=== PATIENT | female | born 1955 | race Hispanic/Latino ===

== ENCOUNTER 2022-04-19 14:53 | Inpatient (IN) | payer OTHER ==
[~2022-04-19] VITALS: Ht 154.9 cm; Wt 65.3 kg
[2022-04-19] MEDS ORDERED: VANCOMYCIN 1G VIAL IVPB ONE ×2 (15:30→16:00)
[2022-04-19] MEDS ORDERED: ONDANSETRON 4MG INJ IVP ONE (15:30)
[2022-04-19] MEDS ORDERED: NIFEDIPINE 10 MG CAP PO ONE (15:30)
[2022-04-19 15:36] LABS: BASOPHILS % (AUTO) 0.2 % (0.0-5.0); HEMATOCRIT 28.5 % (36-48); LYMPHOCYTES % (AUTO) 4.2 % (21.0-51.0); MEAN CORPUSCULAR HEMOGLOBIN 29.4 pg (27.0-33.0); MEAN CORPUSCULAR VOLUME 89.1 fL (79-99); NEUTROPHILS % (AUTO) 91.7 % (40.0-77.0); PLATELET COUNT (AUTO) 403 K/uL (130-400); RED CELL DISTRIBUTION WIDTH 13.2 % (11.0-15.5)
[2022-04-19 15:48] LABS: CREATININE 0.9 mg/dL (0.5-1.5); POTASSIUM 3.8 mmol/L (3.5-5.1)
[2022-04-19 15:58] LABS: ALBUMIN 2.8 g/dL (3.5-5.0); BILIRUBIN,TOTAL 0.4 mg/dL (0.2-1.0); TOTAL PROTEIN, SERUM 8.2 g/dL (6.0-8.3)
[2022-04-19] MEDS: ZOSYN 3.375GM +NS 50ML IV SCH ×2 (16:02→23:30)
[2022-04-19] MEDS ORDERED: HYDRALAZINE 20MG/ML VIAL ONE (16:27)
[2022-04-19] MEDS ORDERED: VANCOMYCIN 1G/250ML KIT 250 ML IV ONE (16:28)
[2022-04-19] MEDS ORDERED: HYDRALAZINE 20MG/ML VIAL IV ONE (16:30)
[2022-04-19] MEDS ORDERED: INSULIN HUMULIN R 100 UNIT/ML 3ML IV ONE (16:30)
[2022-04-19] MEDS: 0.9%NACL 1000ML 1,000 ML IV SCH ×3 (16:45→23:10)
[2022-04-19] MEDS ORDERED: ATOR40TA71 PO (16:58)
[2022-04-19] MEDS ORDERED: CLOP75TA32 PO (16:58)
[2022-04-19] MEDS ORDERED: TRAM-355 PO (16:59)
[2022-04-19] MEDS ORDERED: FERR325T29 PO (16:59)
[2022-04-19] MEDS ORDERED: GABA-529 PO (17:00)
[2022-04-19] MEDS ORDERED: HYDR12.54 PO (17:00)
[2022-04-19] MEDS ORDERED: CLIN-141 PO (17:01)
[2022-04-19] MEDS ORDERED: LEVO750T46 PO (17:01)
[2022-04-19] MEDS ORDERED: MORPHINE 4 MG SYG IV PRN (18:00)
[2022-04-19] MEDS ORDERED: ONDANSETRON 4MG INJ IV PRN (18:00)
[2022-04-19] MEDS ORDERED: MORPHINE 2 MG SYG IV PRN (18:00)
[2022-04-19] MEDS ORDERED: ACETAMINOPHEN 325 MG TAB PO PRN ×2 (18:00)
[2022-04-19] MEDS ORDERED: VANCOMYCIN PROTOCOL PER PHARMACY IV PRN (18:00)
[2022-04-19 18:27] LABS: RETICULOCYTE % (AUTO) 1.09 % (0.42-2.23)
[2022-04-19] MEDS ORDERED: [UNRECOGNIZED DRUG - REMARK] MISC SCH (18:30)
[2022-04-19] MEDS ORDERED: HYDROCHLOROTHIAZIDE 25 MG TABLET PO ONE (18:30)
[2022-04-19 18:32] LABS: CHOLESTEROL 167 mg/dL (<200); HDL CHOLESTEROL 38 mg/dL (35-85); LDL DIRECT 101 mg/dL (0-99); TRIGLYCERIDES 126 mg/dL (30-200)
[2022-04-19 18:39] LABS: HEMOGLOBIN A1C 8.7 % (4.0-6.0)
[2022-04-19] MEDS: MEROPENEM 500 MG VIAL IV SCH (18:53)
[2022-04-19 18:58] LABS: THYROID STIMULATING HORMONE 0.82 uIU/mL (0.36-3.74)
[2022-04-19] MEDS ORDERED: LABETALOL 20MG VIAL IV PRN (19:00)
[2022-04-19 19:16] LABS: % IRON SATURATION 33.3 % (22-44)
[2022-04-19] MEDS ORDERED: INSULIN GLARGINE 100 UNITS/ML 10 ML VIAL SQ SCH (21:00)
[2022-04-19] MEDS: FAMOTIDINE 20MG VIAL IV SCH (21:00)
[2022-04-19] MEDS: GABAPENTIN 300 MG CAPSULE PO SCH (21:30)
[2022-04-19] MEDS: INSULIN GLARGINE 100 UNITS/ML 10 ML VIAL SQ SCH (21:30)
[2022-04-19] MEDS: LISINOPRIL 10 MG TABLET PO SCH (21:30)
[2022-04-19] MEDS: INSULIN LISPRO 100 UNIT/ML 3ML SQ SCH (21:30)
[2022-04-19] MEDS: NIFEDIPINE 10 MG CAP PO SCH (21:30)
[2022-04-20] MEDS ORDERED: PROMETHAZINE HCL 25 MG/ML 1ML AMPULE IM ONE (01:30)
[2022-04-20] MEDS: MEROPENEM 500 MG VIAL IV SCH ×3 (01:42→18:06)
[2022-04-20] MEDS: 0.9%NACL 1000ML 1,000 ML IV SCH ×6 (02:00→19:10)
[2022-04-20] MEDS ORDERED: 0.9% NACL 250ML 250 ML ONE ×2 (04:20→16:05)
[2022-04-20] MEDS: VANCOMYCIN 1G/250ML KIT 250 ML IV SCH ×2 (04:23→16:10)
[2022-04-20 06:20] VITALS: BP 128/59
[2022-04-20] MEDS: INSULIN LISPRO 100 UNIT/ML 3ML SQ SCH ×7 (06:39→20:20)
[2022-04-20] MEDS: ZOSYN 3.375GM +NS 50ML IV SCH (07:30)
[2022-04-20 08:00] VITALS: BP 155/88
[2022-04-20] MEDS: FAMOTIDINE 20MG VIAL IV SCH ×2 (08:39→19:36)
[2022-04-20] MEDS: GABAPENTIN 300 MG CAPSULE PO SCH ×2 (08:40→19:36)
[2022-04-20] MEDS: NIFEDIPINE 10 MG CAP PO SCH ×3 (08:40→19:36)
[2022-04-20] MEDS: HYDROCHLOROTHIAZIDE 25 MG TABLET PO SCH (08:41)
[2022-04-20] MEDS: LISINOPRIL 10 MG TABLET PO SCH ×2 (08:41→19:36)
[2022-04-20] MEDS ORDERED: COMPOUND IV MISC 1 EACH IVSOLN MISC PRN (10:00)
[2022-04-20] MEDS ORDERED: GADOTERATE MEGLUMINE 10 MMOL/20 ML VIAL IV ONE (11:32)
[2022-04-20 11:48] VITALS: BP 138/66
[2022-04-20 14:32] LABS: HEMATOCRIT 26.4 % (36-48); MEAN CORPUSCULAR HEMOGLOBIN 30.3 pg (27.0-33.0); MEAN CORPUSCULAR HGB CONC 34.1 g/dL (32.0-36.0); MEAN CORPUSCULAR VOLUME 88.9 fL (79-99); RED BLOOD CELL COUNT(AUTO) 2.97 MIL/uL (4.00-5.50); RED CELL DISTRIBUTION WIDTH 13.4 % (11.0-15.5); WHITE BLOOD COUNT (AUTO) 19.8 K/uL (4.8-10.8)
[2022-04-20 14:39] LABS: CREATININE 1.3 mg/dL (0.5-1.5); POTASSIUM 3.1 mmol/L (3.5-5.1)
[2022-04-20 16:00] VITALS: BP 114/56
[2022-04-20] MEDS ORDERED: DIPH,PERTUSS(ACELL),TET VAC/PF 0.5 ML VIAL IM ONE (16:00)
[2022-04-20] MEDS: ATORVASTATIN 40 MG TABLET PO SCH (19:35)
[2022-04-20 20:13] VITALS: BP 150/67
[2022-04-20] MEDS: INSULIN GLARGINE 100 UNITS/ML 10 ML VIAL SQ SCH (20:20)
[2022-04-20 23:31] VITALS: BP 118/53
[2022-04-21] MEDS: 0.9%NACL 1000ML 1,000 ML IV SCH ×6 (01:50→21:50)
[2022-04-21] MEDS: MEROPENEM 500 MG VIAL IV SCH ×3 (02:01→18:31)
[2022-04-21] MEDS: VANCOMYCIN 1G/250ML KIT 250 ML IV SCH ×2 (03:06→18:30)
[2022-04-21 03:22] VITALS: BP 142/72
[2022-04-21 05:20] LABS: HEMATOCRIT 25.4 % (36-48); MEAN CORPUSCULAR HGB CONC 33.5 g/dL (32.0-36.0); MEAN CORPUSCULAR VOLUME 89.8 fL (79-99); RED BLOOD CELL COUNT(AUTO) 2.83 MIL/uL (4.00-5.50); RED CELL DISTRIBUTION WIDTH 13.2 % (11.0-15.5); WHITE BLOOD COUNT (AUTO) 15.2 K/uL (4.8-10.8)
[2022-04-21 05:31] LABS: ALBUMIN 2.1 g/dL (3.5-5.0); CREATININE 1.3 mg/dL (0.5-1.5); POTASSIUM 3.1 mmol/L (3.5-5.1)
[2022-04-21] MEDS: INSULIN LISPRO 100 UNIT/ML 3ML SQ SCH ×7 (05:44→20:27)
[2022-04-21] MEDS ORDERED: POTASSIUM CHLORIDE 10% ELIXIR 20 MEQ/15 ML UDCUP PO PRN (07:30)
[2022-04-21 07:40] VITALS: BP 169/76
[2022-04-21] MEDS: FAMOTIDINE 20MG VIAL IV SCH ×2 (09:00→20:55)
[2022-04-21] MEDS: NIFEDIPINE 10 MG CAP PO SCH ×3 (09:03→20:54)
[2022-04-21] MEDS: LISINOPRIL 10 MG TABLET PO SCH ×2 (09:03→20:53)
[2022-04-21] MEDS: GABAPENTIN 300 MG CAPSULE PO SCH ×2 (09:03→20:54)
[2022-04-21] MEDS: IRON SUCROSE COMPLEX 300 MG in 0.9%NACL 50ML 50 ML IV SCH (09:04)
[2022-04-21] MEDS: HYDROCHLOROTHIAZIDE 25 MG TABLET PO SCH (09:04)
[2022-04-21] MEDS: LIDOCAINE HCL-MPF 1% 2ML VIAL IV PRN (10:33)
[2022-04-21] MEDS: POTASSIUM CHLORIDE 20MEQ/100ML 100 ML IV PRN (10:33)
[2022-04-21 11:40] VITALS: BP 156/78
[2022-04-21] MEDS ORDERED: IOHEXOL-350 75 ML VIAL IV ONE (15:22)
[2022-04-21] MEDS ORDERED: PROMETHAZINE HCL 25 MG/ML 1ML AMPULE IM PRN (15:30)
[2022-04-21 15:40] VITALS: BP 119/56
[2022-04-21] MEDS ORDERED: 0.9% NACL 250ML 250 ML ONE (18:29)
[2022-04-21 20:08] VITALS: BP 150/76
[2022-04-21] MEDS: ATORVASTATIN 40 MG TABLET PO SCH (20:53)
[2022-04-21] MEDS: INSULIN GLARGINE 100 UNITS/ML 10 ML VIAL SQ SCH (21:10)
[2022-04-21 23:30] VITALS: BP 161/80
[2022-04-22] MEDS ORDERED: 0.9% NACL 250ML 250 ML ONE (03:16)
[2022-04-22] MEDS: MEROPENEM 500 MG VIAL IV SCH ×3 (03:19→19:06)
[2022-04-22] MEDS: VANCOMYCIN 1G/250ML KIT 250 ML IV SCH ×2 (03:25→15:50)
[2022-04-22 03:37] VITALS: BP 164/77
[2022-04-22] MEDS: 0.9%NACL 1000ML 1,000 ML IV SCH ×5 (04:30→18:00)
[2022-04-22 05:14] LABS: MEAN CORPUSCULAR HGB CONC 33.3 g/dL (32.0-36.0); MEAN CORPUSCULAR VOLUME 89.9 fL (79-99); RED BLOOD CELL COUNT(AUTO) 2.67 MIL/uL (4.00-5.50); RED CELL DISTRIBUTION WIDTH 13.3 % (11.0-15.5); WHITE BLOOD COUNT (AUTO) 14.9 K/uL (4.8-10.8)
[2022-04-22 05:40] LABS: CREATININE 1.1 mg/dL (0.5-1.5)
[2022-04-22 05:50] LABS: POTASSIUM 2.5 mmol/L (3.5-5.1)
[2022-04-22] MEDS: POTASSIUM CHLORIDE 20MEQ/100ML 100 ML IV PRN (06:06)
[2022-04-22] MEDS: LIDOCAINE HCL-MPF 1% 2ML VIAL IV PRN (06:07)
[2022-04-22] MEDS: INSULIN LISPRO 100 UNIT/ML 3ML SQ SCH ×5 (06:53→20:44)
[2022-04-22] MEDS ORDERED: MAGNESIUM 2GM PREMIX 50ML 50 ML IV PRN ×2 (07:30→11:30)
[2022-04-22 07:41] VITALS: BP 194/86
[2022-04-22] MEDS ORDERED: POTASSIUM CHLORIDE 10% ELIXIR 20 MEQ/15 ML UDCUP PO SCH (07:45)
[2022-04-22] MEDS: FAMOTIDINE 20MG VIAL IV SCH ×2 (09:00→20:41)
[2022-04-22 11:16] VITALS: BP 158/78
[2022-04-22] MEDS: LISINOPRIL 10 MG TABLET PO SCH ×2 (11:19→20:40)
[2022-04-22] MEDS: NIFEDIPINE 10 MG CAP PO SCH ×3 (11:19→20:39)
[2022-04-22] MEDS: GABAPENTIN 300 MG CAPSULE PO SCH ×2 (11:19→20:39)
[2022-04-22] MEDS: HYDROCHLOROTHIAZIDE 25 MG TABLET PO SCH (11:20)
[2022-04-22] MEDS: IRON SUCROSE COMPLEX 300 MG in 0.9%NACL 50ML 50 ML IV SCH (11:21)
[2022-04-22 16:00] VITALS: BP 150/82
[2022-04-22 20:14] VITALS: BP 127/67
[2022-04-22] MEDS: INSULIN GLARGINE 100 UNITS/ML 10 ML VIAL SQ SCH (20:30)
[2022-04-22] MEDS: ATORVASTATIN 40 MG TABLET PO SCH (20:40)
[2022-04-22 23:10] VITALS: BP 125/57
[2022-04-23] MEDS: 0.9%NACL 1000ML 1,000 ML IV SCH ×2 (00:30→02:08)
[2022-04-23] MEDS: MEROPENEM 500 MG VIAL IV SCH ×2 (02:08→09:29)
[2022-04-23 04:08] VITALS: BP 150/68
[2022-04-23] MEDS: VANCOMYCIN 1G/250ML KIT 250 ML IV SCH ×2 (04:16→16:00)
[2022-04-23] MEDS: INSULIN LISPRO 100 UNIT/ML 3ML SQ SCH ×3 (06:03→16:30)
[2022-04-23 08:00] VITALS: BP 156/78
[2022-04-23] MEDS: FAMOTIDINE 20MG VIAL IV SCH (09:00)
[2022-04-23] MEDS: GABAPENTIN 300 MG CAPSULE PO SCH (09:26)
[2022-04-23] MEDS: KCL 20 MEQ ERTAB PO PRN ×2 (09:26→13:56)
[2022-04-23] MEDS: HYDROCHLOROTHIAZIDE 25 MG TABLET PO SCH (09:27)
[2022-04-23] MEDS: LISINOPRIL 10 MG TABLET PO SCH (09:27)
[2022-04-23] MEDS: NIFEDIPINE 10 MG CAP PO SCH ×2 (09:28→13:55)
[2022-04-23] MEDS: IRON SUCROSE COMPLEX 300 MG in 0.9%NACL 50ML 50 ML IV SCH (09:36)
[2022-04-23] MEDS ORDERED: LISI10TA24 PO (11:13)
[2022-04-23] MEDS ORDERED: NIFE60TA81 PO (11:13)
[2022-04-23] MEDS ORDERED: ONDA-104 PO (11:28)
[2022-04-23 12:00] VITALS: BP 142/62
[2022-04-23] MEDS ORDERED: LEVO500T90 PO (16:51)
== END 2022-04-23 18:15 | disposition home or self-care (01) | DRG 264 ==
LOC: EDH 14:53 → EDHIP 14:54 → EDBD 14:54 → EDHIP 17:33 → UNDOADMIN 17:33 → 3BH 04-20 01:29
PROVIDERS: ADMIT Hospitalist; ATTEND Hospitalist
PROC: 0J9Q0ZZ Drainage of Right Foot Subcutaneous Tissue and Fascia, Open Approach (ICD-10-PCS; principal; 2022-04-22)
PROC: 0JBQ0ZZ Excision of Right Foot Subcutaneous Tissue and Fascia, Open Approach (ICD-10-PCS; 2022-04-22)
DX: E11.52 Type 2 diabetes mellitus with diabetic peripheral angiopathy with gangrene (principal); A48.0 Gas gangrene; E87.1 Hypo-osmolality and hyponatremia; L02.611 Cutaneous abscess of right foot; I16.0 Hypertensive urgency; D72.829 Elevated white blood cell count, unspecified; I10 Essential (primary) hypertension; Z20.822 Contact with and (suspected) exposure to COVID-19; E87.8 Other disorders of electrolyte and fluid balance, not elsewhere classified; E11.65 Type 2 diabetes mellitus with hyperglycemia; E11.40 Type 2 diabetes mellitus with diabetic neuropathy, unspecified; E11.42 Type 2 diabetes mellitus with diabetic polyneuropathy; D50.9 Iron deficiency anemia, unspecified; E11.621 Type 2 diabetes mellitus with foot ulcer; L97.519 Non-pressure chronic ulcer of other part of right foot with unspecified severity; E87.6 Hypokalemia; B96.20 Unspecified Escherichia coli [E. coli] as the cause of diseases classified elsewhere; E83.42 Hypomagnesemia; B95.2 Enterococcus as the cause of diseases classified elsewhere; Z79.899 Other long term (current) drug therapy
CPT/HCPCS: 36415; 71045; 73630; 73720; 74176; 74177; 80048; 80053; 80061; 80202; 82040; 82607; 82728; 82746; 82948; 83036; 83540; 83550; 83605; 83735; 83880; 84145; 84443; 84484; 85025; 85027; 85045; 85651; 86140; 87040; 87070; 87076; 87077; 87186; 87635; 90715; 93005; 93925; 93926; G0378; J0360; J1756; J1815; J2185; J2270; J2405; J2543; J2550; J3370; J3475; J3480; J3490; J7050; Q9967

== ENCOUNTER 2022-04-24 21:50 | Inpatient (IN) | payer OTHER ==
[~2022-04-24] VITALS: Ht 157.5 cm; Wt 61.9 kg
[~2022-04-24 21:50] MED LIST: ATOR40TA71 PO; CLOP75TA32 PO; FERR325T29 PO; GABA-529 PO; HYDR12.54 PO; LEVO500T90 PO; LISI10TA24 PO; NIFE60TA81 PO; ONDA-104 PO; TRAM-355 PO
[2022-04-24] MEDS ORDERED: ONDANSETRON 4MG INJ IVP ONE (22:00)
[2022-04-24 22:14] LABS: BASOPHILS % (AUTO) 0.2 % (0.0-5.0); EOSINOPHILS % (AUTO) 0.2 % (0.0-8.0); HEMATOCRIT 31.6 % (36-48); LYMPHOCYTES % (AUTO) 5.6 % (21.0-51.0); MEAN CORPUSCULAR HEMOGLOBIN 29.4 pg (27.0-33.0); MEAN CORPUSCULAR HGB CONC 33.5 g/dL (32.0-36.0); MEAN CORPUSCULAR VOLUME 87.8 fL (79-99); NEUTROPHILS % (AUTO) 88.1 % (40.0-77.0); PLATELET COUNT (AUTO) 515 K/uL (130-400); RED CELL DISTRIBUTION WIDTH 13.2 % (11.0-15.5); WHITE BLOOD COUNT (AUTO) 15.1 K/uL (4.8-10.8)
[2022-04-24 22:29] LABS: CREATININE 1.3 mg/dL (0.5-1.5); POTASSIUM 3.3 mmol/L (3.5-5.1)
[2022-04-24 22:34] LABS: ALBUMIN 2.6 g/dL (3.5-5.0); BILIRUBIN,TOTAL 0.4 mg/dL (0.2-1.0); TOTAL PROTEIN, SERUM 7.3 g/dL (6.0-8.3)
[2022-04-24] MEDS ORDERED: 0.9%NACL 1000ML 1,000 ML IV ONE (23:00)
[2022-04-25 01:15] LABS: APPEARANCE,URINE Clear (CLEAR); BILIRUBIN,URINE Negative (NEGATIVE); COLOR,URINE Yellow (YELLOW); GLUCOSE, URINE (UA) 250 mg/dL (NEGATIVE); KETONES,URINE Negative (NEGATIVE); LEUKOCYTE ESTERASE ,URINE Negative (NEGATIVE); NITRATE,URINE Negative (NEGATIVE); OCCULT BLOOD,URINE Negative (NEGATIVE); PROTEIN,URINE POS 1+ mg/dL (NEGATIVE); UROBILINOGEN,URINE 0.2 mg/dL (0.2-1.0)
[2022-04-25 01:35] LABS: BACTERIA,URINE None Seen /HPF (None Seen); RBC,URINE None Seen /HPF (0-1); SQUAMOUS EPITHELIAL CELL,UR Rare /HPF (0-2); WBC,URINE 0-1 /HPF (0-1); YEAST,URINE BUDDING None Seen /HPF (None Seen)
[2022-04-25] MEDS ORDERED: ACETAMINOPHEN 325 MG TAB PO PRN (02:00)
[2022-04-25 02:20] LABS: INR 1.01 (0.85-1.15)
[2022-04-25 02:21] LABS: PARTIAL THROMBOPLASTIN TIME 32.8 SEC (26.3-35.5)
[2022-04-25] MEDS ORDERED: LABETALOL 20MG VIAL IV SCH (02:30)
[2022-04-25] MEDS: ONDANSETRON 4MG INJ IVP SCH ×4 (02:30→21:02)
[2022-04-25] MEDS: ENALAPRILAT DIHYDRATE 1.25MG/ML 1ML VIAL IV SCH ×4 (02:30→21:04)
[2022-04-25] MEDS ORDERED: HYDRALAZINE 20MG/ML VIAL ONE (03:03)
[2022-04-25] MEDS: 0.9%NACL 1000ML 1,000 ML IV SCH ×2 (03:20→16:10)
[2022-04-25] MEDS: POTASSIUM CHLORIDE 20MEQ/100ML 100 ML IV PRN (03:30)
[2022-04-25 04:30] VITALS: BP 189/80
[2022-04-25] MEDS: LABETALOL 20MG VIAL IV PRN ×2 (04:42→22:53)
[2022-04-25] MEDS: ONDANSETRON 4MG INJ IV PRN (05:13)
[2022-04-25] MEDS ORDERED: INSULIN HUMULIN R 100 UNIT/ML 3ML ONE (05:33)
[2022-04-25] MEDS: INSULIN HUMULIN R 100 UNIT/ML 3ML SQ SCH ×4 (05:55→21:00)
[2022-04-25] MEDS: ZOSYN 3.375GM+NS 50ML 50 ML IV SCH ×3 (07:22→21:06)
[2022-04-25 08:05] VITALS: BP 187/73
[2022-04-25] MEDS: HEPARIN 5,000 UNIT VIAL SQ SCH ×2 (09:18→21:05)
[2022-04-25] MEDS: FAMOTIDINE 20MG TAB PO SCH (09:18)
[2022-04-25 11:32] VITALS: BP 186/79
[2022-04-25] MEDS: MUPIROCIN OINTMENT 22 GM TUBE TP SCH (12:14)
[2022-04-25 15:49] VITALS: BP 187/85
[2022-04-25 20:00] VITALS: BP 199/81
[2022-04-25 22:05] VITALS: BP 201/87
[2022-04-25] MEDS ORDERED: PROMETHAZINE HCL 25 MG/ML 1ML AMPULE IM ONE (23:00)
[2022-04-26] VITALS (57 sets, daily range): BP systolic 114–219; BP diastolic 39–117
[2022-04-26] MEDS ORDERED: LABETALOL 20MG VIAL IV ONE (01:00)
[2022-04-26] MEDS: ENALAPRILAT DIHYDRATE 1.25MG/ML 1ML VIAL IV SCH ×4 (02:16→23:30)
[2022-04-26] MEDS: ONDANSETRON 4MG INJ IVP SCH (02:20)
[2022-04-26 03:41] LABS: BASOPHILS % (AUTO) 0.2 % (0.0-5.0); EOSINOPHILS % (AUTO) 0.1 % (0.0-8.0); LYMPHOCYTES % (AUTO) 7.3 % (21.0-51.0); MEAN CORPUSCULAR HEMOGLOBIN 29.4 pg (27.0-33.0); MEAN CORPUSCULAR HGB CONC 32.8 g/dL (32.0-36.0); MEAN CORPUSCULAR VOLUME 89.6 fL (79-99); MONOCYTES % (AUTO) 6.3 % (3.0-13.0); NEUTROPHILS % (AUTO) 84.5 % (40.0-77.0); PLATELET COUNT (AUTO) 434 K/uL (130-400); RED BLOOD CELL COUNT(AUTO) 2.79 MIL/uL (4.00-5.50); RED CELL DISTRIBUTION WIDTH 13.2 % (11.0-15.5); WHITE BLOOD COUNT (AUTO) 9.9 K/uL (4.8-10.8)
[2022-04-26 03:51] LABS: CREATININE 1.3 mg/dL (0.5-1.5); MAGNESIUM 1.5 mg/dL (1.80-2.40); PHOSPHORUS 2.7 mg/dL (2.5-4.9)
[2022-04-26 03:53] LABS: POTASSIUM 2.8 mmol/L (3.5-5.1)
[2022-04-26] MEDS: ZOSYN 3.375GM+NS 50ML 50 ML IV SCH (04:42)
[2022-04-26] MEDS: POTASSIUM CHLORIDE 20MEQ/100ML 100 ML IV PRN ×4 (04:43→23:36)
[2022-04-26] MEDS: LIDOCAINE HCL-MPF 1% 2ML VIAL IV PRN ×2 (04:43→10:53)
[2022-04-26] MEDS: LABETALOL 20MG VIAL IV PRN ×2 (04:55→10:25)
[2022-04-26] MEDS: INSULIN HUMULIN R 100 UNIT/ML 3ML SQ SCH ×4 (06:42→21:14)
[2022-04-26] MEDS ORDERED: DILTIAZEM 25MG INJ IVP PRN (08:00)
[2022-04-26] MEDS ORDERED: MAGNESIUM 2GM PREMIX 50ML 50 ML IV SCH (08:00)
[2022-04-26] MEDS ORDERED: DILTIAZEM 125 MG/25 ML INJ 125 MG in 0.9%NACL 100ML 100 ML IV PRN (08:00)
[2022-04-26] MEDS ORDERED: NICARDIPINE 25MG INJ 25 MG in 0.9% NACL 250ML 240 ML IV SCH (08:30)
[2022-04-26] MEDS: ONDANSETRON 4MG INJ IV PRN ×2 (08:40→17:09)
[2022-04-26] MEDS: HEPARIN 5,000 UNIT VIAL SQ SCH ×2 (08:59→20:16)
[2022-04-26] MEDS: FAMOTIDINE 20MG TAB PO SCH (09:00)
[2022-04-26] MEDS: 1/2NS+20MEQ KCL/1000ML 1,000 ML IV SCH ×2 (09:12→17:17)
[2022-04-26] MEDS: NICARDIPINE 100 MG/100ML IV SCH ×2 (09:41)
[2022-04-26] MEDS: MUPIROCIN OINTMENT 22 GM TUBE TP SCH (15:32)
[2022-04-26] MEDS ORDERED: METOCLOPRAMIDE 10 MG/2 ML VIAL IVP ONE (20:45)
[2022-04-26] MEDS: METOCLOPRAMIDE 10 MG/2 ML VIAL IVP SCH (23:29)
[2022-04-27] VITALS (53 sets, daily range): BP systolic 115–184; BP diastolic 41–111
[2022-04-27] MEDS: ENALAPRILAT DIHYDRATE 1.25MG/ML 1ML VIAL IV SCH ×4 (02:30→20:24)
[2022-04-27 06:39] LABS: HEMATOCRIT 27.4 % (36-48); MEAN CORPUSCULAR HEMOGLOBIN 30.2 pg (27.0-33.0); MEAN CORPUSCULAR HGB CONC 32.8 g/dL (32.0-36.0); MEAN CORPUSCULAR VOLUME 91.9 fL (79-99); RED BLOOD CELL COUNT(AUTO) 2.98 MIL/uL (4.00-5.50); RED CELL DISTRIBUTION WIDTH 13.8 % (11.0-15.5); WHITE BLOOD COUNT (AUTO) 11.1 K/uL (4.8-10.8)
[2022-04-27] MEDS: INSULIN HUMULIN R 100 UNIT/ML 3ML SQ SCH ×4 (06:52→21:00)
[2022-04-27 07:02] LABS: % IRON SATURATION 69.6 % (22-44)
[2022-04-27 07:33] LABS: ALBUMIN 2.5 g/dL (3.5-5.0); BILIRUBIN,TOTAL 0.3 mg/dL (0.2-1.0); CREATININE 1.4 mg/dL (0.5-1.5); MAGNESIUM 2.1 mg/dL (1.80-2.40); PHOSPHORUS 1.7 mg/dL (2.5-4.9); POTASSIUM 3.7 mmol/L (3.5-5.1); TOTAL PROTEIN, SERUM 6.9 g/dL (6.0-8.3); URIC ACID 4.2 mg/dL (2.6-7.2)
[2022-04-27] MEDS: ONDANSETRON 4MG INJ IV PRN (08:48)
[2022-04-27] MEDS: METOCLOPRAMIDE 10 MG/2 ML VIAL IVP SCH ×4 (08:48→20:24)
[2022-04-27] MEDS: HEPARIN 5,000 UNIT VIAL SQ SCH ×2 (08:51→20:30)
[2022-04-27] MEDS: FAMOTIDINE 20MG VIAL IV SCH (09:03)
[2022-04-27] MEDS: 1/2NS+20MEQ KCL/1000ML 1,000 ML IV SCH ×3 (09:04→17:54)
[2022-04-27] MEDS: NICARDIPINE 100 MG/100ML IV SCH ×2 (09:14)
[2022-04-27] MEDS: MUPIROCIN OINTMENT 22 GM TUBE TP SCH (12:16)
[2022-04-28] VITALS (20 sets, daily range): BP systolic 147–195; BP diastolic 52–103
[2022-04-28] MEDS: ENALAPRILAT DIHYDRATE 1.25MG/ML 1ML VIAL IV SCH ×4 (02:52→21:27)
[2022-04-28] MEDS: ONDANSETRON 4MG INJ IV PRN ×3 (04:18→16:00)
[2022-04-28 04:35] LABS: BASOPHILS % (AUTO) 0.2 % (0.0-5.0); EOSINOPHILS % (AUTO) 0.8 % (0.0-8.0); HEMATOCRIT 27.6 % (36-48); LYMPHOCYTES % (AUTO) 10.6 % (21.0-51.0); MEAN CORPUSCULAR HEMOGLOBIN 29.8 pg (27.0-33.0); MEAN CORPUSCULAR HGB CONC 32.2 g/dL (32.0-36.0); MEAN CORPUSCULAR VOLUME 92.3 fL (79-99); MONOCYTES % (AUTO) 8.2 % (3.0-13.0); NEUTROPHILS % (AUTO) 79.3 % (40.0-77.0); PLATELET COUNT (AUTO) 520 K/uL (130-400); RED BLOOD CELL COUNT(AUTO) 2.99 MIL/uL (4.00-5.50); WHITE BLOOD COUNT (AUTO) 10.9 K/uL (4.8-10.8)
[2022-04-28 04:50] LABS: ALBUMIN 2.6 g/dL (3.5-5.0); BILIRUBIN,TOTAL 0.3 mg/dL (0.2-1.0); CREATININE 1.4 mg/dL (0.5-1.5); POTASSIUM 3.6 mmol/L (3.5-5.1); TOTAL PROTEIN, SERUM 6.8 g/dL (6.0-8.3)
[2022-04-28] MEDS: INSULIN HUMULIN R 100 UNIT/ML 3ML SQ SCH ×4 (06:21→21:26)
[2022-04-28] MEDS ORDERED: MIDAZOLAM HCL 1 MG/ML 2ML VIAL ONE (07:24)
[2022-04-28] MEDS ORDERED: PROPOFOL 10 MG/ML 20ML VIAL IV ONE (07:24)
[2022-04-28] MEDS ORDERED: LIDOCAINE PF 100MG/5ML (2%) SYRINGE 5ML ONE (07:25)
[2022-04-28] MEDS: FAMOTIDINE 20MG VIAL IV SCH (08:24)
[2022-04-28] MEDS: METOCLOPRAMIDE 10 MG/2 ML VIAL IVP SCH ×4 (08:25→21:27)
[2022-04-28] MEDS: HEPARIN 5,000 UNIT VIAL SQ SCH ×2 (08:43→21:26)
[2022-04-28] MEDS: 1/2NS+20MEQ KCL/1000ML 1,000 ML IV SCH ×2 (08:45→21:27)
[2022-04-28] MEDS: LABETALOL 20MG VIAL IV PRN ×2 (09:23→15:58)
[2022-04-28] MEDS: MUPIROCIN OINTMENT 22 GM TUBE TP SCH (10:15)
[2022-04-29] VITALS (8 sets, daily range): BP systolic 158–202; BP diastolic 68–91
[2022-04-29] MEDS: ONDANSETRON 4MG INJ IV PRN ×3 (01:09→17:10)
[2022-04-29] MEDS: ENALAPRILAT DIHYDRATE 1.25MG/ML 1ML VIAL IV SCH ×4 (03:07→20:48)
[2022-04-29 03:42] LABS: BASOPHILS % (AUTO) 0.4 % (0.0-5.0); HEMATOCRIT 26.9 % (36-48); LYMPHOCYTES % (AUTO) 10.8 % (21.0-51.0); MEAN CORPUSCULAR HEMOGLOBIN 30.5 pg (27.0-33.0); MEAN CORPUSCULAR HGB CONC 33.1 g/dL (32.0-36.0); MEAN CORPUSCULAR VOLUME 92.1 fL (79-99); MONOCYTES % (AUTO) 9.6 % (3.0-13.0); NEUTROPHILS % (AUTO) 77.1 % (40.0-77.0); PLATELET COUNT (AUTO) 344 K/uL (130-400); RED BLOOD CELL COUNT(AUTO) 2.92 MIL/uL (4.00-5.50); RED CELL DISTRIBUTION WIDTH 14.1 % (11.0-15.5); WHITE BLOOD COUNT (AUTO) 8.3 K/uL (4.8-10.8)
[2022-04-29 03:51] LABS: CREATININE 1.2 mg/dL (0.5-1.5); POTASSIUM 3.5 mmol/L (3.5-5.1)
[2022-04-29] MEDS: 1/2NS+20MEQ KCL/1000ML 1,000 ML IV SCH ×2 (06:39→17:12)
[2022-04-29] MEDS: POTASSIUM CHLORIDE 20MEQ/100ML 100 ML IV PRN ×2 (06:39→17:11)
[2022-04-29] MEDS: INSULIN HUMULIN R 100 UNIT/ML 3ML SQ SCH ×4 (06:40→21:54)
[2022-04-29] MEDS: FAMOTIDINE 20MG VIAL IV SCH (09:11)
[2022-04-29] MEDS: HEPARIN 5,000 UNIT VIAL SQ SCH ×2 (09:11→21:53)
[2022-04-29] MEDS: METOCLOPRAMIDE 10 MG/2 ML VIAL IVP SCH ×4 (09:11→20:48)
[2022-04-29] MEDS ORDERED: NIFEDIPINE ER 30 MG TAB PO SCH (10:00)
[2022-04-29] MEDS ORDERED: CLONIDINE 0.1 MG/ 24 HR PATCH TD SCH (10:30)
[2022-04-29] MEDS: HYDRALAZINE 20MG/ML VIAL IV PRN ×2 (12:43→20:52)
[2022-04-29] MEDS: MUPIROCIN OINTMENT 22 GM TUBE TP SCH (12:45)
[2022-04-29] MEDS: ATORVASTATIN 40 MG TABLET PO SCH (20:48)
[2022-04-29] MEDS: LISINOPRIL 10 MG TABLET PO SCH (21:00)
[2022-04-30] VITALS (10 sets, daily range): BP systolic 140–188; BP diastolic 58–91
[2022-04-30] MEDS: 1/2NS+20MEQ KCL/1000ML 1,000 ML IV SCH ×3 (02:00→21:52)
[2022-04-30] MEDS: ENALAPRILAT DIHYDRATE 1.25MG/ML 1ML VIAL IV SCH ×4 (02:30→21:51)
[2022-04-30] MEDS: INSULIN HUMULIN R 100 UNIT/ML 3ML SQ SCH ×4 (07:30→21:37)
[2022-04-30] MEDS: LISINOPRIL 10 MG TABLET PO SCH ×2 (09:00→21:37)
[2022-04-30] MEDS: NIFEDIPINE ER 30 MG TAB PO SCH (09:00)
[2022-04-30] MEDS: FAMOTIDINE 20MG VIAL IV SCH (09:13)
[2022-04-30] MEDS: METOCLOPRAMIDE 10 MG/2 ML VIAL IVP SCH ×4 (09:14→21:34)
[2022-04-30] MEDS: HEPARIN 5,000 UNIT VIAL SQ SCH ×2 (09:23→21:36)
[2022-04-30 09:28] LABS: MEAN CORPUSCULAR HEMOGLOBIN 29.8 pg (27.0-33.0); MEAN CORPUSCULAR HGB CONC 32.1 g/dL (32.0-36.0); MEAN CORPUSCULAR VOLUME 92.7 fL (79-99); RED BLOOD CELL COUNT(AUTO) 3.02 MIL/uL (4.00-5.50); RED CELL DISTRIBUTION WIDTH 14.3 % (11.0-15.5); WHITE BLOOD COUNT (AUTO) 9.4 K/uL (4.8-10.8)
[2022-04-30 09:41] LABS: CREATININE 1.2 mg/dL (0.5-1.5); POTASSIUM 3.6 mmol/L (3.5-5.1)
[2022-04-30] MEDS: HYDRALAZINE 20MG/ML VIAL IV PRN (11:41)
[2022-04-30] MEDS: MUPIROCIN OINTMENT 22 GM TUBE TP SCH (11:46)
[2022-04-30] MEDS: POTASSIUM CHLORIDE 20MEQ/100ML 100 ML IV PRN (13:27)
[2022-04-30] MEDS: ATORVASTATIN 40 MG TABLET PO SCH (21:37)
[2022-05-01] MEDS: ONDANSETRON 4MG INJ IV PRN (03:10)
[2022-05-01] MEDS: ENALAPRILAT DIHYDRATE 1.25MG/ML 1ML VIAL IV SCH (03:11)
[2022-05-01 04:00] VITALS: BP 162/72
[2022-05-01 04:34] LABS: HEMATOCRIT 26.2 % (36-48); MEAN CORPUSCULAR HGB CONC 32.8 g/dL (32.0-36.0); MEAN CORPUSCULAR VOLUME 91.3 fL (79-99); RED BLOOD CELL COUNT(AUTO) 2.87 MIL/uL (4.00-5.50); RED CELL DISTRIBUTION WIDTH 14.1 % (11.0-15.5); WHITE BLOOD COUNT (AUTO) 8.4 K/uL (4.8-10.8)
[2022-05-01 04:41] LABS: CREATININE 1.2 mg/dL (0.5-1.5); POTASSIUM 3.5 mmol/L (3.5-5.1)
[2022-05-01] MEDS: INSULIN HUMULIN R 100 UNIT/ML 3ML SQ SCH ×3 (05:54→16:13)
[2022-05-01 07:00] VITALS: BP 165/64
[2022-05-01] MEDS ORDERED: METO10TA41 PO (08:13)
[2022-05-01] MEDS: 1/2NS+20MEQ KCL/1000ML 1,000 ML IV SCH (08:16)
[2022-05-01] MEDS: NIFEDIPINE ER 30 MG TAB PO SCH (09:14)
[2022-05-01] MEDS: FAMOTIDINE 20MG VIAL IV SCH (09:14)
[2022-05-01] MEDS: METOCLOPRAMIDE 10 MG/2 ML VIAL IVP SCH ×3 (09:14→16:13)
[2022-05-01] MEDS: LISINOPRIL 10 MG TABLET PO SCH (09:15)
[2022-05-01] MEDS: HEPARIN 5,000 UNIT VIAL SQ SCH (09:44)
[2022-05-01 11:00] VITALS: BP 153/78
[2022-05-01] MEDS: MUPIROCIN OINTMENT 22 GM TUBE TP SCH (13:10)
== END 2022-05-01 16:21 | disposition home or self-care (01) | DRG 392 ==
LOC: EDH 21:50 → EDHIP 21:51 → 4DH 04-25 04:28 → 2CV 04-26 09:31 → 2BH 04-26 11:27 → 2AH 04-28 16:47
PROVIDERS: ADMIT Hospitalist; ATTEND Hospitalist
PROC: 0DB68ZX Excision of Stomach, Via Natural or Artificial Opening Endoscopic, Diagnostic (ICD-10-PCS; principal; 2022-04-28)
DX: K29.70 Gastritis, unspecified, without bleeding (principal); I16.1 Hypertensive emergency; R33.9 Retention of urine, unspecified; E11.621 Type 2 diabetes mellitus with foot ulcer; E11.65 Type 2 diabetes mellitus with hyperglycemia; I16.0 Hypertensive urgency; D72.829 Elevated white blood cell count, unspecified; E83.42 Hypomagnesemia; E87.6 Hypokalemia; K31.84 Gastroparesis; I10 Essential (primary) hypertension; L97.519 Non-pressure chronic ulcer of other part of right foot with unspecified severity; E11.51 Type 2 diabetes mellitus with diabetic peripheral angiopathy without gangrene; E11.21 Type 2 diabetes mellitus with diabetic nephropathy; E11.43 Type 2 diabetes mellitus with diabetic autonomic (poly)neuropathy
CPT/HCPCS: 36415; 43239; 74176; 78264; 80048; 80053; 81001; 82607; 82728; 82746; 82948; 83540; 83550; 83690; 83735; 84100; 84132; 84484; 84550; 85025; 85027; 85610; 85730; 93005; 93306; 93356; A4606; A9541; G0378; J0360; J1644; J1815; J2001; J2250; J2405; J2543; J2704; J2765; J3475; J3480; J3490; J7030

== ENCOUNTER 2022-05-18 09:13 | Emergency (ER) | payer MEDICAID, OTHER ==
[~2022-05-18] VITALS: Ht 165.1 cm; Wt 63.5 kg
[~2022-05-18 09:13] MED LIST changes: +AEC81 PO; +CEPH500C2 PO; -FERR325T29 PO; +FURO20TA6 PO; -GABA-529 PO; -HYDR12.54 PO; -LEVO500T90 PO; +METO10TA3 PO; +NIFE-40 PO; -NIFE60TA81 PO; -ONDA-104 PO; +SITA1TAB6 PO; -TRAM-355 PO
[2022-05-18 09:24] LABS: BASOPHILS % (AUTO) 0.7 % (0.0-5.0); EOSINOPHILS % (AUTO) 0.5 % (0.0-8.0); HEMATOCRIT 30.2 % (36-48); LYMPHOCYTES % (AUTO) 12.4 % (21.0-51.0); MEAN CORPUSCULAR HEMOGLOBIN 30.6 pg (27.0-33.0); MEAN CORPUSCULAR HGB CONC 33.8 g/dL (32.0-36.0); MEAN CORPUSCULAR VOLUME 90.7 fL (79-99); MONOCYTES % (AUTO) 5.8 % (3.0-13.0); NEUTROPHILS % (AUTO) 80.4 % (40.0-77.0); PLATELET COUNT (AUTO) 385 K/uL (130-400); RED BLOOD CELL COUNT(AUTO) 3.33 MIL/uL (4.00-5.50); RED CELL DISTRIBUTION WIDTH 14.2 % (11.0-15.5); WHITE BLOOD COUNT (AUTO) 8.1 K/uL (4.8-10.8)
[2022-05-18] MEDS ORDERED: ONDANSETRON 4MG INJ IVP ONE (09:30)
[2022-05-18] MEDS ORDERED: LACTATED RINGERS 1000ML 1,000 ML IV ONE (09:30)
[2022-05-18] MEDS ORDERED: NITROGLYCERIN 1GM OINT 1 INCH/1GM TD ONE (09:30)
[2022-05-18] MEDS ORDERED: MORPHINE 4 MG SYG IVP ONE (09:30)
[2022-05-18 09:42] LABS: CREATININE 1.5 mg/dL (0.5-1.5); POTASSIUM 3.2 mmol/L (3.5-5.1)
[2022-05-18 09:47] LABS: ALBUMIN 3.4 g/dL (3.5-5.0); TOTAL PROTEIN, SERUM 7.8 g/dL (6.0-8.3)
[2022-05-18] MEDS ORDERED: IOHEXOL 350 MG/ML 100ML INFUS..BTL IV ONE (09:47)
[2022-05-18 09:52] LABS: INR 1.04 (0.85-1.15); PROTHROMBIN TIME 11.3 SEC (9.6-11.6)
[2022-05-18 09:52] LABS: APPEARANCE,URINE CLEAR (CLEAR); BILIRUBIN,URINE NEGATIVE (NEGATIVE); COLOR,URINE YELLOW (YELLOW); GLUCOSE, URINE (UA) >=1000 mg/dL (NEGATIVE); KETONES,URINE 5 mg/dL (NEGATIVE); LEUKOCYTE ESTERASE ,URINE NEGATIVE (NEGATIVE); NITRATE,URINE NEGATIVE (NEGATIVE); OCCULT BLOOD,URINE NEGATIVE (NEGATIVE); PROTEIN,URINE 100 mg/dL (NEGATIVE); UROBILINOGEN,URINE 0.2 mg/dL (0.2-1.0)
[2022-05-18 09:53] LABS: PARTIAL THROMBOPLASTIN TIME 26.2 SEC (26.3-35.5)
[2022-05-18 09:56] LABS: AMPHET/METH SCREEN,URINE NEGATIVE (NEGATIVE); BARBITURATE SCREEN, URINE NEGATIVE (NEGATIVE); BENZODIAZEPINES SCREEN,URINE NEGATIVE (NEGATIVE); CANNABINOID SCREEN,URINE NEGATIVE (NEGATIVE); COCAINE SCREEN,URINE NEGATIVE (NEGATIVE); OPIATE SCREEN,URINE NEGATIVE (NEGATIVE); PHENCYCLIDINE SCREEN,URINE NEGATIVE (NEGATIVE)
[2022-05-18 10:03] LABS: BACTERIA,URINE Rare /HPF (None Seen); RBC,URINE 0-1 /HPF (0-1); SQUAMOUS EPITHELIAL CELL,UR Few /HPF (0-2); WBC,URINE 0-1 /HPF (0-1)
[2022-05-18 10:04] LABS: B-TYPE NATRIURETIC PEPTIDE 254 pg/mL (0-100)
[2022-05-18] MEDS ORDERED: IOHEXOL-350 50ML VIAL IV ONE (10:18)
[2022-05-18] MEDS ORDERED: MAGNESIUM CITRATE 296 ML SOLUTION PO ONE (11:30)
[2022-05-18] MEDS ORDERED: MAGNESIUM CITRATE 296 ML SOLUTION ONE (11:32)
[2022-05-18] MEDS ORDERED: ONDA-104 PO (14:57)
[2022-05-18 16:02] VITALS: BP 142/69
== END 2022-05-18 16:28 | disposition home or self-care (01) ==
LOC: EDH 09:13
DX: K59.00 Constipation, unspecified (principal); R11.2 Nausea with vomiting, unspecified; D64.9 Anemia, unspecified; E11.9 Type 2 diabetes mellitus without complications; R07.89 Other chest pain; E78.00 Pure hypercholesterolemia, unspecified; Z98.890 Other specified postprocedural states; Z79.899 Other long term (current) drug therapy; Z79.82 Long term (current) use of aspirin; Z79.84 Long term (current) use of oral hypoglycemic drugs
CPT/HCPCS: 99285; 71270; 93970; 96374; 96361; 96375; 82150; 82550; 84484; 80053; 83880; 80305; 83690; 85025; 85378; 85610; 85730; 83605; 81003; 81001; 36415; 74177; 93005; J7120; J2405; J2270; Q9967 ×2